=== PATIENT | female | born 1955 | race Caucasian/White ===

== ENCOUNTER → 2016-08-06 | Outpatient (CLI) | payer MEDICARE, MEDICAID ==
[~2016-08-06] MED LIST: ACYCLOVIR 400M400 MG PO; AMOXIL500 MG PO; ANTIVERT/2525 MG PO; ASPIRIN EC81 MG PO; ATENOLOL50 MG PO; B/P PO; BUPROPION HCL75 MG PO; BUPROPION XL300 MG PO; BUSPAR 5MG TAB5 MG PO; BUSPIRONE HCL15 MG PO; BYDUREON PEN2 MG SC; CIPRO 500MG TA500 MG PO; CLARITHROMYCIN500 MG PO; CLONAZEPAM 1MG T1 MG PO; CLONAZEPAM0.5 M1 PO; CRESTOR5 MG PO; DICLOFENAC 50MG50 MG PO; EC NAPROSYN500 MG PO; FLAGYL 500MG.500 MG PO; FLEXERIL10 MG PO; GABAPENTIN 600600 MG PO; GEMFIBROZIL600 MG PO; GLIPIZIDE 5MG TA5 MG PO; HYDROXYZINE 25M25 MG PO; JANUVIA100 MG PO; JANUVIA50 MG PO; KAPIDEX60 MG PO; LISINOPRIL/HCTZ1 TA3 PO; LORTAB 5/500 501 TAB PO; LOSARTAN POTAS100 MG PO; LOSARTAN POTASS1 TA3 PO; METFORMIN 500M500 M1 PO; METFORMIN1000 MG PO; NAPROSYN 500MG500 MG PO; PRAMIPEXOLE D0.25 MG PO; PREDNISONE 20MG20 MG PO; PROAIR HFA0.09 MG/AC IH; TOPIRAMATE 25MG25 MG PO; ZOLOFT100 MG PO
--- NOTE | 2016-08-06 13:07 | RADIOLOGY REPORT PS360 ---
EXAM: Barium swallow/esophagram. INDICATION: ORDERING PHYSICIAN: TAMARA HERRERA MD PATIENT AGE: 61 years COMPARISON: None TECHNIQUE: In the upright position the patient was observed to swallow barium in both the AP and lateral view. The cervical esophagus was examined under fluoroscopy with images obtained. The patient was then placed prone in the right anterior oblique position and was observed to swallow barium with Valsalva technique . FLUOROSCOPY TIME: 1 minute and 11 seconds FINDINGS: There was no evidence of aspiration. There was normal peristalsis. No filling defects or mucosal abnormalities. No masses or strictures. There is a small sliding hiatal hernia. Reflux was not demonstrated during the exam. IMPRESSION: Small sliding hiatal hernia otherwise negative upper GI
== END ==
LOC: RAD 08:42
DX: R13.10 Dysphagia, unspecified (principal)

== ENCOUNTER → 2016-11-06 | Outpatient (CLI) | payer MEDICARE, MEDICAID ==
[2016-11-06 16:38] LABS: BUN 20 mg/dL (7-18); GFR (ESTIMATED) 50 ML/MIN (59-)
== END ==
LOC: LAB 15:45
PROVIDERS: Physician Assistant
DX: E11.40 Type 2 diabetes mellitus with diabetic neuropathy, unspecified (principal)

== ENCOUNTER 2017-02-13 16:53 | Emergency (ER) | payer MEDICARE, MEDICAID ==
[~2017-02-13] VITALS: Ht 165.1 cm; Wt 111.1 kg
[2017-02-13] MEDS ORDERED: QUETIAPINE FUMA25 M1 PO (17:11)
[2017-02-13 17:30] LABS: HEMOGLOBIN 11.8 g/dL (12.2-16.2); LYMPH # 2.8 K/mm3 (0.7-4.5); LYMPH % 30.8 % (10-50.0)
--- NOTE | 2017-02-13 17:44 | Emergency Room Report ---
History of Present Illness Time Seen by [id number] Presenting Problem in Triage Pt arrived:Walked Presenting Problem:LEFT ARM AND LEFT NECK PAIN SINCE WAKING UP THIS MORNING AT 0530. WORSENING THROUGHOUT THE DAY. DENIES CHEST PAIN, MILD SOA. DIZZINESS Onset of symptoms date/time:02/13 or onset unknown for: Treatment Prior to Arrival: REFURBISH TECHNICIAN Provided by: Sepsis Risk Assessment: Temp: 97.7 B/P: 138/73 MAP: 94 Pulse: 78 Resp: 20 Recent fever? N Clinical Suspician of Infection? N Mental Status: 1 - Regular (Normal Baseline) Sepsis Risk:Low Sepsis Risk Have you (or family members/close friends) recently traveled outside the [place]? N If Yes, where/when: Have you had exposure to infectious disease within the past month? TB? Other? Specify: Patient reports waking up with arm pain this morning. Has been seen by Dr. Miller in the past for HTN, and by Dr. Huitron in [place]. She has DM and HTN, but denies known CAD; she denies hyperlipidemia; states mom had "spells" but unknown if mom had CAD; patient smokes a few cigarettes daily. Pain in left arm is positional and achy; no SOB or nausea, no diaphoresis, no calf pain. No pain now. States takes daily asa. ALLERGIES Coded Allergies: No Known Allergies (02/23/16) Home Medications Active Scripts Metformin HCl (Metformin) 500 MG PO BID #28 TAB Prov: 02/23/16 Reported Medications Cyclobenzaprine Hcl (Flexeril) 10 MG PO BID ASPIRIN ENTERIC COATED (Aspirin EC) 1 TAB PO DAILY SERTRALINE HYDROCHLORIDE (Zoloft 100MG) 1 TAB PO DAILY LOSARTAN/HYDROCHLOROTHIAZIDE (Losartan-Hctz 100-12.5 MG Tab) 1 TAB PO DAILY #30 TAB NAPROXEN (NAPROSYN 500MG TAB) 500 MG PO BID Gabapentin (Gabapentin 600MG) 600 MG PO Q8 #120 TAB Hydroxyzine Pamoate (Hydroxyzine) 25 MG PO TIDP PRN ITCHING ATENOLOL (Atenolol 50MG) 50 MG PO DAILY Dexlansoprazole (Dexilant) 60 MG PO DAILY EXENATIDE MICROSPHERES (Bydureon Pen) 2 MG SC FRIDAY #4 Bupropion Hcl (Bupropion XL 300MG) 300 MG PO DAILY Buspirone Hcl 30 MG PO BID Quetiapine Fumarate 25 MG PO BID #60 History Medical History General CAD? No Angina: No DC: No Hypertension? Yes Hyperlipidemia? Yes CHF? No DVT? No PE? No COPD? No Asthma? No Anemia? No GERD? Yes Gastric ulcers? No GI Bleed? No Hernia? No Thyroid Problems? No Hypothyroidism? No CVA? No Seizures? No Diabetes? Yes Insulin Dependent: No Insulin Pump: No Home FSBS? Yes Renal Insuffiency? No End Stage Renal Disease? No UTI? No Stones? No BPH? No GB Disease: No Nephritic Syndrome? No Asplenia? No Hepatitis? No Sickle Cell Disease? No Arthritis? Yes Migraines? No Cataracts? No Glaucoma? No MRSA? No HIV? No TB? No Anxiety? Yes Depression? No Cancer? No More? Yes Additional hx: PTSD,PERSONALITY DISORDER Immunization Hx DT/Tetanus 1-4 Years Ago Flu [id number] Pneumonia Received In Past Surgical Hx Previous Surgery?Y CYST FROM LEFT BREAST (69 Hysterect CYST REMOVED FROM LEFT WRIST 93- COLONOSCOPY EGD CYST REMOVED FROM HEAD Family History Family Hx Diabetes No CAD Yes Hypertension Yes Hyperlipidemia No Cancer No TB No Social History Smoking Hx Smoker: Current Some Day Smoker Tobacco: Yes Type Cigarettes Packs/day N/A Alcohol Alcohol: No Review of Systems All Other Systems Reviewed and Negative Musculoskeletal see HPI Physical Exam Vital Signs Vital Signs Date Time Temp Pulse Resp B/P Pulse O2 O2 Flow FiO2 Ox Delivery Rate 02/13 1854 80 20 130/88 96 02/13 1701 97.7 78 20 138/73 94 General Appearance normal appearance, WD/WN, no apparent distress Eye Exam - bilateral eye normal exam, bilateral eye PERRL Neck normal inspection, non-tender, supple, full range of motion Respiratory Status Yes: trachea midline, chest symmetrical, non tender chest. No: respiratory distress, tender on palpation, use of accessory muscles, pain on inspiration, pain on expiration, productive cough, non productive cough. Lung Sounds bilateral: normal breath sounds, lungs clear. 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 No Results/Orders Laboratory Tests 02/13/17 1919: Troponin I < 0.02 02/13/17 1715: Sodium 135 L, Potassium 4.0, Chloride 96 L, Carbon Dioxide 28, BUN 21 H, Creatinine 0.9, Estimated Creat Clear 112, Estimated GFR (MDRD) 63, Glucose 425 H, Calcium 9.6, Total Bilirubin 0.3, AST 16, ALT 21, Alkaline Phosphatase 145 H , Creatine Kinase 58, CK-MB (CK-2) Rel Index 1.6, CK and CKMB Interp 0.9, Troponin I < 0.02, Total Protein 8.0, Albumin 3.6, Globulin 4.4 H, Albumin/ Globulin Ratio 0.8 L, WBC 9.0, RBC 4.34, Hgb 11.8 L, Hct 37.6, MCV 86.6, RDW 15.6, Plt Count 425 H, MPV 7.6, Gran % 62.3, Gran # 5.6, Lymphocytes % 30.8, Monocytes % 4.1, Eosinophils % 2.2, Basophils % 0.6, Lymphocytes # 2.8, Monocytes # 0.4, Eosinophils # 0.2, Basophils # 0.1, PUBS MCHC 31.5 L, MCH 27.3 Current Medication Orders Sig/Charlie Start time Last Medication Dose Route Stop Time Status Admin Sodium Chloride 1,000 ML .STK-MED ONE 02/13 185 DC IV Sodium Chloride 1,000 ML .Q1H1M 02/13 1800 DC 02/13 IV 02/13 190 185 Sodium Chloride 10 ML PRN PRN 02/13 1800 AC IV 02/14 1755 Sodium Chloride 10 ML PRN PRN 02/13 171 AC IV 02/14 1713 Orders Procedure Date/time Status TROPONIN I 02/13 1800 Complete ELECTROCARDIOGRAM REQUEST 02/13 171 Active IV SALINE LOCK 02/13 171 Active CBC WITH AUTO DIFF 02/13 171 Complete CARDIAC ENZYMES 02/13 171 Complete CHEM 12 PROFILE 02/13 171 Complete 12 LEAD EKG-BESSON (INITIAL) 02/13 1656 Active CM/EKG CM/EKG EKG rate, NSR, rhythm, no evid. of ischemic chgs, no ectopy, normal QRS, normal SD, normal EKG (NSR 78;) XRAY/CT/US XRAY/CT/US XRAY chest XR interpretation by reviewed by me Xray Results normal/NAD, no infiltrates, normal heart size, normal lung inflation leatha, prom aortic knob Departure Departure Time of Disposition 1951 Disposition DC Home or Self Care(routine) Clinical Impression Primary Impression: Arm pain, left Ruled Out Impressions: Myocardial infarct Condition STABLE Referrals MAYNOR HERNANDEZ, DARY (Family) Patient Instructions DI for Arm Pain Additional Instructions moist heat, Tylenol as needed, see Dary in two to five days for follow up Discharge Counseling Counseled pt/family regarding diagnosis, test results, medications/RX, home care, follow up needs ED Critical Care Critical Care No at 1953
[2017-02-13 17:51] LABS: BUN 21 mg/dL (7-18)
[2017-02-13 17:53] LABS: GFR (ESTIMATED) 63 ML/MIN (59-)
--- NOTE | 2017-02-13 18:39 | RADIOLOGY REPORT PS360 ---
CHEST(2 VIEWS-NOT PORTABLE) HISTORY: Chest pain CARDIAC WORKUP ORDERING PHYSICIAN: Yeimy Chin MD PATIENT AGE: 61 years COMPARISON: 09/05/2016 FINDINGS: There is mild cardiomegaly without failure. There is a calcified granuloma in the right lung base. Increased density is present in the anterior clear space inferiorly seen on the lateral view and may be due to summation artifact. Cannot exclude underlying infiltrate. More apparent on today's exam. The lungs are otherwise clear without infiltrates, suspicious nodules, or pleural effusions. No acute bony abnormalities. IMPRESSION: 1. Old granulomatous disease. 2. Mild cardiomegaly 3. Summation density versus infiltrate in the anterior clear space inferiorly
[2017-02-13 20:11] VITALS: BP 154/98
== END 2017-02-13 20:11 | disposition home or self-care (01) ==
LOC: ER 16:53
PROVIDERS: Emergency Medicine
DX: M79.622 Pain in left upper arm (principal); M54.2 Cervicalgia; I20.8 Other forms of angina pectoris; R42 Dizziness and giddiness; I10 Essential (primary) hypertension; E11.65 Type 2 diabetes mellitus with hyperglycemia; K21.9 Gastro-esophageal reflux disease without esophagitis; Z72.0 Tobacco use

== ENCOUNTER 2017-04-09 07:22 | Day surgery (SDC) | payer MEDICARE, MEDICAID ==
[~2017-04-09 07:22] MED LIST changes: +QUETIAPINE FUMA25 M1 PO
[2017-04-09 07:56] LABS: LYMPH # 2.5 K/mm3 (0.7-4.5); LYMPH % 30.3 % (10-50.0)
[2017-04-09 08:02] LABS: BUN 16 mg/dL (7-18)
[2017-04-09 08:05] LABS: HEMOGLOBIN 13.6 g/dL (12.2-16.2)
[2017-04-09 08:06] LABS: GFR (ESTIMATED) 72 ML/MIN (59-)
--- NOTE | 2017-04-09 11:28 | RADIOLOGY REPORT PS360 ---
CARDIAC CATHETERIZATION DATE OF CATHETERIZATION:04/09/2017 10:21 AM PROCEDURES: 1. Right heart catheterization 2. Left heart catheterization 3. Left ventriculogram 4. Selective coronary angiogram INDICATION FOR TEST: 1. Moderate mitral regurgitation in the setting of severe pulmonary hypertension by noninvasive stress imaging 2. Preoperative evaluation for mitral valve repair 3. Risk factors for coronary artery disease 4. Pulmonary hypertension Informed consent was obtained prior to the procedure. COMPLICATIONS: None ESTIMATED BLOOD LOSS: Less than 10 ml. TECHNIQUE: One percent lidocaine was used to anesthetize the right anterior aspect of the right neck. The right internal jugular vein was accessed via the Seldinger technique and a 7 [place] sheath was placed in the right internal jugular vein. Following this one percent lidocaine was used to anesthetize the right anterior aspect of the right wrist. Right radial artery was accessed via the Seldinger technique and a 6 [place] hydrophilic sheath was placed in the right radial artery. An arterial cocktail using verapamil and nitroglycerin and heparin was administered intravenously arterial. 8 trap catheter was used to perform left heart catheterization left ventriculogram and selective coronary angiogram while a [place]-Magdiel catheter was used to perform right heart catheterization. At the end of the procedure the arterial sheath was removed good hemostasis was achieved using TR banding patient was transferred to the postop holding area in stable condition for venous sheath removal. ANGIOGRAPHIC RESULTS: 1. The left main artery normal 2. The left anterior descending artery has proximal 20% stenoses and mid vessel 30% stenoses. 3. The circumflex artery is non dominant and has mid vessel 30% stenoses supplying a large first obtuse marginal artery 4. The right coronary artery is dominant and has proximal 20% stenosis and mid vessel mostly eccentric 60% stenosis 5. The [place] ventriculogram reveals hyperdynamic ventricle 70% The left ventricular end-diastolic pressure 25 mmHg HEMODYNAMICS: Right atrial pressure is 6 mm Hg. Pulmonary arterial pressure is 30/17 mm Hg. Pulmonary artery occlusion pressure is 15 mm Hg. SATURATIONS: RA is 66 %. PA is 65 %. IMPRESSION: 1. Moderate coronary artery disease in the mid dominant right coronary artery as described above 2. Hyperdynamic ventricle consistent with diastolic dysfunction and hypertensive heart disease 3. Mild pulmonary hypertension 4. No evidence of cardiopulmonary shunt PLAN: 1. I'm going to recommend a transesophageal echocardiogram to better look at the mitral valve morphology. 2. At this point I don't believe mitral valve repair is indicated given the mild pulmonary hypertension and less ABDON demonstrates more severe mitral regurgitation 3. Risk factor modification within LDL less than 55 4. Lexiscan Myoview to determine if the right coronary artery lesion has hemodynamic significance 5. Avoidance of tobacco products 6. Patient would probably benefit from a higher doses of diuretics in order to decrease left-sided filling pressures
[2017-04-09 11:43] LABS: ARTERIAL O2 SAT CATH LAB 65 % (90-100); VENOUS O2 SAT CATH LAB 66 % (75-80)
[2017-04-09 14:12] VITALS: BP 129/71
== END 2017-04-09 14:12 | disposition home or self-care (01) ==
LOC: CATHLAB 07:22
PROVIDERS: Internal Medicine
PROC: B2111ZZ Fluoroscopy of Multiple Coronary Arteries using Low Osmolar Contrast (ICD-10-PCS; 2017-04-09)
PROC: B2151ZZ Fluoroscopy of Left Heart using Low Osmolar Contrast (ICD-10-PCS; 2017-04-09)
PROC: 4A023N8 Measurement of Cardiac Sampling and Pressure, Bilateral, Percutaneous Approach (ICD-10-PCS; principal; 2017-04-09 08:30)
DX: I25.119 Atherosclerotic heart disease of native coronary artery with unspecified angina pectoris (principal); I11.9 Hypertensive heart disease without heart failure; I34.0 Nonrheumatic mitral (valve) insufficiency; I27.20 Pulmonary hypertension, unspecified; I50.30 Unspecified diastolic (congestive) heart failure; E11.9 Type 2 diabetes mellitus without complications
CPT/HCPCS: C1725; C1769; C1894; J1644; Q9967

== ENCOUNTER 2017-04-17 12:24 | Day surgery (SDC) | payer MEDICARE, MEDICAID ==
[2017-04-17 12:54] VITALS: BP 177/99
--- NOTE | 2017-04-17 16:19 | RADIOLOGY REPORT PS360 ---
Procedure: : Transesophageal echocardiogram Indication for procedure: Shortness of breath, hypertension, coronary artery disease, abnormal mitral valve has mitral regurgitation. Procedure: Patient was brought in to the cardiac catheter lab holding area in hemodynamically stable condition, after the informed consent patient was given moderate sedation by anesthesiologist, local anesthesia was applied, and transesophageal echocardiogram were performed without any difficulty. Patient tolerated the procedure well. Findings: 1. The left atrium is mildly enlarged, left atrial appendage is free of thrombus, there is good appendage flow by spectral Doppler. 2. The right atrium is normal size, the intra-atrial septum is intact, there is no flow across the intra-atrial septum, agitated saline contrast study fails to identify intracardiac shunt. 3. The aortic valve is minimally thickened and fibrosed leaflet continue to display mobility, there is no aortic stenosis or aortic insufficiency. 4. The mitral valve has mitral annular calcification, which extends and both anterior and posterior mitral leaflet, there is no restriction the leaflet mobility, there is no mitral stenosis, there is mild to moderate mitral regurgitation, there is no flow reversal in the pulmonary vein. 5. The tricuspid valve leaflets are minimally thickened, there is mild tricuspid regurgitation. 6. The pulmonic valve is structurally normal. 7. The right ventricle is mildly enlarged with normal contractility. 8. The left ventricle is normal size, there is mild concentric left ventricular hypertrophy, visually estimated ejection fraction of 65% with no obvious regional wall motion abnormality. 9. The ascending arch and the descending thoracic aorta there is no aneurysm or dissection. 10. No significant pericardial effusion noted. Conclusion: 1. Mildly enlarged left atrium, normal left ventricular size, mild concentric left ventricular hypertrophy, visually estimated ejection fraction 65% with no obvious regional wall motion abnormality, Doppler evidence of impaired LV relaxation seen. 2. Mitral annular calcification present at mitral valve, there is no mitral stenosis, there is mild to moderate mitral regurgitation. 3. Agitated saline contrast study fails to identify intracardiac shunt. 4. Mild tricuspid regurgitation. 5. No significant pericardial effusion noted.
== END 2017-04-17 14:43 | disposition home or self-care (01) ==
LOC: CATHLAB 12:24
PROVIDERS: Internal Medicine Cardiovascular Disease
PROC: B246ZZ4 Ultrasonography of Right and Left Heart, Transesophageal (ICD-10-PCS; principal; 2017-04-17 13:30)
DX: I25.10 Atherosclerotic heart disease of native coronary artery without angina pectoris (principal); I10 Essential (primary) hypertension; R06.02 Shortness of breath; I34.0 Nonrheumatic mitral (valve) insufficiency; I07.1 Rheumatic tricuspid insufficiency
CPT/HCPCS: G0463

== ENCOUNTER → 2017-05-06 | Outpatient (CLI) | payer MEDICARE, MEDICAID ==
--- NOTE | 2017-05-06 11:14 | CARDIOVASCULAR REPORT ---
"Cerebrovascular Exam Indications: 780.4 Dizziness and giddiness. IMPRESSIONS 1. The bilateral vertebral arteries are patent with normal antegrade flow. 2. Study suggests less than 20% stenosis involving the right internal carotid artery and the left internal carotid artery. History: Risk factors: Hypertension. Hyperlipidemia. Carotid duplex study. Complete study and Doppler flow study including spectral analysis, color and banuelos scale imaging. Height: Height: 165.1cm. Height: 65in. Weight: Weight: 113.4kg. Weight: 249.5lb. Body mass index: BMI: 41.6kg/m^2. Body surface area: BSA: 2.34m^2. Location: Vascular laboratory. Patient status: Outpatient. Tables: Arterial flow: + +---------+---------+ |Location |V sys |V ed | + +---------+---------+ |Right CCA - proximal|77.8cm/s |25.1cm/s | + +---------+---------+ |Right CCA - distal |80.9cm/s |22.8cm/s | + +---------+---------+ |Right ECA |66.8cm/s |---------| + +---------+---------+ |Right ICA - proximal|131cm/s |36.9cm/s | + +---------+---------+ |Right ICA - mid |112cm/s |47.9cm/s | + +---------+---------+ |Right ICA - distal |127cm/s |-50.3cm/s| + +---------+---------+ |Right vertebral |-52.6cm/s|---------| + +---------+---------+ |Left CCA - proximal |80.1cm/s |29.9cm/s | + +---------+---------+ |Left CCA - distal |80.1cm/s |18.9cm/s | + +---------+---------+ |Left ECA |76.4cm/s |---------| + +---------+---------+ |Left ICA - proximal |121cm/s |35.4cm/s | + +---------+---------+ |Left ICA - mid |109cm/s |35.4cm/s | + +---------+---------+ |Left ICA - distal |110cm/s |34.6cm/s | + +---------+---------+ |Left vertebral |21.4cm/s |---------| + +---------+---------+ Velocity ratios: + + + + + + | |Right, V sys|Right, V ed|Left, V sys|Left, V ed| + + + + + + |Max ICA/dist CCA|1.62 |2.1 |1.51 |1.87 | + + + + + + (Report amended ) Electronically signed by: Roby Orellana [id number]"
== END ==
LOC: RT 10:45 → RAD 12:00
DX: R06.02 Shortness of breath (principal); R42 Dizziness and giddiness; I34.0 Nonrheumatic mitral (valve) insufficiency; I25.10 Atherosclerotic heart disease of native coronary artery without angina pectoris

== ENCOUNTER → 2017-05-07 | Outpatient (CLI) | payer MEDICARE, MEDICAID ==
--- NOTE | 2017-05-08 13:18 | RADIOLOGY REPORT PS360 ---
History and Indications: Coronary artery disease, obesity, hypertension, diabetes, hyperlipidemia, chest pain. Procedure: Patient received a 0.4 mg of Lexiscan, resting heart rate was 72 bpm, resting blood pressure 150/81, scan maximum heart rate achieved was 96 bpm, is less than 85% of the maximum predicted heart rate and a blood pressure was 132/73. With Lexiscan patient complained of mild shortness of breath and headache Electrocardiogram: Resting electrocardiogram showed sinus rhythm, rightward axis, with Lexiscan there is less than 1.[address] segment depression from the baseline EKG. The EKG portion of the Lexiscan Myoview is nondiagnostic. Cardiac stress and resting SPECT images: Cardiac stress and rest SPECT images were obtained using technetium 99 Myoview 10.1 mCi at rest and 32.5 mCi at stress, gated SPECT further analysis of segmental wall motion and calculation of the ejection fraction also been. Cardiac stress and rest images show decreased tracer activity in the anteroseptal area which improves on the resting images suggestive of reversible, computer derived ejection fraction is 65 percent with no obvious regional wall motion abnormality, right ventricle is mildly enlarged with normal contractility. Conclusion: 1. The EKG portion of the Lexiscan Myoview is nondiagnostic. 2. Scintigraphic evidence of mild reversible ischemia involving the anteroseptal wall. Computer derived ejection fraction 65% with no obvious regional wall motion abnormality, right ventricle is mildly enlarged with normal contractility. 3. Abnormal Lexiscan Myoview study
== END ==
LOC: RAD 07:20
DX: R06.02 Shortness of breath (principal); I25.10 Atherosclerotic heart disease of native coronary artery without angina pectoris; I34.0 Nonrheumatic mitral (valve) insufficiency; R42 Dizziness and giddiness
CPT/HCPCS: A9502; J2785

== ENCOUNTER → 2017-05-23 | Outpatient (CLI) | payer MEDICARE, MEDICAID | LOC: LAB 13:30 | DX: E11.9 Type 2 diabetes mellitus without complications (principal) ==

== ENCOUNTER 2017-05-24 00:01 | Emergency (ER) | payer MEDICARE, MEDICAID ==
[~2017-05-24] VITALS: Ht 162.6 cm; Wt 113.4 kg
[2017-05-24 00:10] VITALS: BP 139/77
== END 2017-05-24 00:51 | disposition left against medical advice (07) ==
LOC: ER 00:01
DX: Z53.21 Procedure and treatment not carried out due to patient leaving prior to being seen by health care provider (principal); M79.605 Pain in left leg; M79.604 Pain in right leg